=== PATIENT | male | born 1965 | race Caucasian/White ===

== ENCOUNTER 2017-01-24 11:20 | Emergency (ER) | payer BC ==
[2017-01-24] MEDS ORDERED: DIPH,PERTUS(ACELL)TETVAC-LF 0.5 ML VIAL IM ONE (12:02)
[2017-01-24] MEDS ORDERED: ceFAZolin 2 GM in SODIUM CHLORIDE 0.9% 100 ML IVPB STA (12:04)
--- NOTE | 2017-01-24 12:13 | ED ---
Wound/Laceration HPI <Alice Madsen - Last Filed: 01/24/17 13:15> - General Source: patient, RN notes reviewed, old records reviewed Mode of arrival: wheelchair Limitations: no limitations <Cheli Garza - Last Filed: 01/24/17 13:50> - General Chief Complaint: Wound/Laceration Stated Complaint: Right Leg Lac Time Seen by Provider: 01/24/17 11:42 - History of Present Illness Initial Comments: This is a 51-year-old male presents emergency Department chief complaint of laceration over the right lower leg. Patient reports that he was walking through shattered and cut it accidentally on galvanized steel. Patient reports that he has no loss of sensation distally to the cut. He reports it would not stop bleeding. Initially felt lightheaded. He states there is some pain. He thinks that he cut the muscles as well. Patient does not know the last tetanus vaccine he had. (Cheli Garza) - Related Data Home Medications Medication Instructions Recorded Confirmed Multivitamins, Thera [Multivitamin 1 tab PO DAILY 01/24/17 01/24/17 (formulary)] Previous Rx's Medication Instructions Recorded Cephalexin [Keflex] 500 mg PO Q6H #40 cap 01/24/17 Allergies Allergy/AdvReac Type Severity Reaction Status Date / Time pseudoephedrine AdvReac Heart races Verified 01/24/17 12:00 [From Claritin-D] Review of Systems ROS Other: All systems not noted in ROS Statement are negative. <Alice Madsen - Last Filed: 01/24/17 13:15> ROS Other: All systems not noted in ROS Statement are negative. <Cheli Garza - Last Filed: 01/24/17 13:50> ROS Statement: Those systems with pertinent positive or pertinent negative responses have been documented in the HPI. Past Medical History Past Medical History: No Reported History History of Any Multi-Drug Resistant Organisms: None Reported Additional Past Surgical History / Comment(s): l shoulder Past Psychological History: No Psychological Hx Reported Smoking Status: Never smoker Past Alcohol Use History: Occasional Past Drug Use History: None Reported <Cheli Garza - Last Filed: 01/24/17 13:50> General Exam <Alice Madsen - Last Filed: 01/24/17 13:15> Limitations: no limitations General appearance: alert, in no apparent distress Head exam: Present: atraumatic, normocephalic, normal inspection Eye exam: Present: normal appearance, PERRL, EOMI. Absent: scleral icterus, conjunctival injection, periorbital swelling ENT exam: Present: normal exam, mucous membranes moist Neck exam: Present: normal inspection. Absent: tenderness, meningismus, lymphadenopathy Respiratory exam: Present: normal lung sounds bilaterally. Absent: respiratory distress, wheezes, rales, rhonchi, stridor Cardiovascular Exam: Present: regular rate, normal rhythm, normal heart sounds. Absent: systolic murmur, diastolic murmur, rubs, gallop, clicks GI/Abdominal exam: Present: soft, normal bowel sounds. Absent: distended, tenderness, guarding, rebound, rigid Extremities exam: Present: normal inspection, full ROM, normal capillary refill. Absent: tenderness, pedal edema, joint swelling, calf tenderness Back exam: Present: normal inspection Neurological exam: Present: alert, oriented X3, CN II-XII intact Psychiatric exam: Present: normal affect, normal mood Skin exam: Present: warm, dry, intact, normal color. Absent: rash <Cheli Garza - Last Filed: 01/24/17 13:50> - General Exam Comments Initial Comments: This is a 51-year-old male. Patient does not appear to be in any acute distress. (Cheli Garza) Procedures - Laceration Laceration #1 Consent Obtained: verbal consent Time Out Performed: Yes Indication: laceration Site: lower extremity (right) Size (cm): 14 Description: linear, flap Depth: involves muscle layer Anesthetic Used: lidocaine 1% Anesthesia Technique: local infiltration Amount (mls): 12 Pre-repair: wound explored, irrigated extensively Type of Sutures: nylon, vicryl Size of Sutures: 4-0 Number of Sutures: 21 Technique: simple, interrupted, other (8 internal sutures placed) Patient Tolerated Procedure: well, no complications <Alice Madsen - Last Filed: 01/24/17 13:15> Medical Decision Making <Alice Madsen - Last Filed: 01/24/17 13:15> <Cheli Garza - Last Filed: 01/24/17 13:50> - Medical Decision Making 21-year-old male with right lower leg laceration after getting cut on galvanized metal. Patient did have a laceration to the leg muscles. Patient was given x-rays, no evidence of any osseous abnormality. Patient's given a updated tetanus vaccine. He was given IV. Patient also received his sutures from manages the PA. As documented above. Wound was thoroughly irrigated. Patient will be discharged with a prescription for. Discussed that he needs return to have this sutures removed. Discussed following up with orthopedic as well and regards to the muscle tear. Patient agrees to treatment plan will comply. Return parameters were discussed. (Cheli Garza) Disposition <Alice Madsen - Last Filed: 01/24/17 13:15> Time of Disposition: 13:48 <Cheli Garza - Last Filed: 01/24/17 13:50> Clinical Impression: Laceration of right lower leg Disposition: HOME SELF-CARE Condition: Stable Instructions: Laceration (ED), Care For Your Stitches (ED) Additional Instructions: Please return to the emergency room in 10 days to have sutures removed. Please leave wound covered for the first 24-48 hours and then leave open to air after that time. Please use clean soap and water to clean the suture area to prevent scabbing over the top of your sutures. Please watch for any signs of infection which may include but not limited to increased pain, swelling, redness, fever or chills. Please return to the emergency room if any signs of infection do occur. Please return to the emergency room for any other concerns or complications. Prescriptions: Cephalexin [Keflex] 500 mg PO Q6H #40 cap Referrals: Nonstaff,Physician [Primary Care Provider] - 1-2 days Tamiko Nugent MD [STAFF PHYSICIAN] - 1-2 days
--- NOTE | 2017-01-24 12:14 | XR ---
EXAMINATION TYPE: XR tibia fibula RT DATE OF EXAM: 01/24/2017 COMPARISON: NONE HISTORY: Right lower leg laceration TECHNIQUE: Two views are submitted. FINDINGS: The osseous structures are intact. The joint spaces are preserved. IMPRESSION: 1. No acute osseous abnormality.
[2017-01-24] MEDS ORDERED: HYDROcodone/APAP 10-325MG 1 EACH TAB PO ONE (13:11)
[2017-01-24 13:57] VITALS: BP 126/76; PULSE 67; RESP 16; TEMP 97.6
== END 2017-01-24 14:00 | disposition home or self-care (01) ==
LOC: EC 11:20
DX: S81.811A Laceration without foreign body, right lower leg, initial encounter (principal); Z79.899 Other long term (current) drug therapy; Z88.8 Allergy status to other drugs, medicaments and biological substances; Z23 Encounter for immunization; W45.8XXA Other foreign body or object entering through skin, initial encounter; Y93.01 Activity, walking, marching and hiking
CPT/HCPCS: 99283; 96365; 12045; 90471; 73590; 90715; J0690